=== PATIENT | male | born 1960 | race Caucasian/White ===

== ENCOUNTER 2022-04-07 22:22 | Inpatient (IN) | payer BC ==
[~2022-04-07] VITALS: Ht 167.6 cm; Wt 105.7 kg
[2022-04-07 22:33] VITALS: BP_SYST 122
[2022-04-07] MEDS ORDERED: ONDANSETRON 4 MG ODT TAB PO ONE (22:45)
[2022-04-07 23:05] LABS: BASOPHILS # (AUTO) 0.1 K/uL (0.0-0.2); BASOPHILS % (AUTO) 0.6 % (0.0-2.0); EOSINOPHILS # (AUTO) 0.1 K/uL (0.0-0.4); EOSINOPHILS % (AUTO) 0.8 % (0.0-4.0); HEMATOCRIT 42.9 % (36-54); HEMOGLOBIN 15.2 g/dL (14.0-18.0); LYMPHOCYTES # (AUTO) 1.5 K/uL (1.0-5.5); LYMPHOCYTES % (AUTO) 17.5 % (20.5-51.5); MEAN CORPUSCULAR HEMOGLOBIN 32 pg (27-31); MEAN CORPUSCULAR HGB CONC 35 % (32-36); MEAN CORPUSCULAR VOLUME 91 fL (79.0-98.0); MONOCYTES # (AUTO) 0.8 K/uL (0.0-1.0); MONOCYTES % (AUTO) 9.4 % (1.7-9.3); NEUTROPHILS # (AUTO) 6.2 K/uL (1.8-7.7); NEUTROPHILS % (AUTO) 71.7 % (40.0-70.0); PLATELET COUNT (AUTO) 149 K/uL (130-430); RED BLOOD CELL COUNT(AUTO) 4.72 MIL/uL (4.2-6.2); RED CELL DISTRIBUTION WIDTH 12.7 % (9.0-15.0); WHITE BLOOD COUNT (AUTO) 8.6 K/uL (4.8-10.8)
[2022-04-07 23:27] LABS: ANION GAP 10 (5-15); CALCIUM 9.6 mg/dL (8.4-11.0); CHLORIDE 104 mmol/L (98-107); CREATININE 1.36 mg/dL (0.55-1.30); GLUCOSE 132 mg/dL (70-99); POTASSIUM 3.9 mmol/L (3.5-5.1); UREA NITROGEN, BLOOD 13 mg/dL (8-21)
[2022-04-07 23:29] LABS: GFR AFRICAN AMERICAN 69 mL/min (>90)
[2022-04-07 23:35] LABS: ALANINE AMINOTRANSFERASE 152 U/L (12-78); ALBUMIN 3.6 g/dL (3.4-4.8); ASPARTATE AMINOTRANSFERASE 93 U/L (10-37); LIPASE 113 U/L (73-393); TOTAL BILIRUBIN 0.8 mg/dL (0.0-1.0)
[2022-04-08 00:31] LABS: BILIRUBIN,URINE NEGATIVE (NEGATIVE); BLOOD, URINE NEGATIVE (NEGATIVE); CLARITY/URINE CLEAR (CLEAR); COLOR,URINE YELLOW (YELLOW); GLUCOSE,URINE NEGATIVE (NEGATIVE); KETONES,URINE NEGATIVE (NEGATIVE); LEUKOCYTE ESTERASE ,URINE NEGATIVE (NEGATIVE); NITRITE, URINE NEGATIVE (NEGATIVE); PROTEIN URINE NEGATIVE (NEGATIVE)
[2022-04-08] MEDS ORDERED: ONDANSETRON HCL 4 MG/2 ML VIAL IVP ONE (01:30)
[2022-04-08] MEDS ORDERED: NS 500 ML IV ONE (01:30)
[2022-04-08] MEDS ORDERED: HYDROmorphone 1 MG/ML INJ. CARTRIDGE IVP ONE (01:30)
[2022-04-08] MEDS ORDERED: PIPERACILLIN/TAZO 3.375 GM in NS 50 ML IV ONE (02:00)
[2022-04-08] MEDS ORDERED: HYDROmorphone 1 MG/ML INJ. CARTRIDGE IVP PRN (02:00)
[2022-04-08] MEDS ORDERED: ONDANSETRON HCL 4 MG/2 ML VIAL IVP PRN ×2 (02:00→07:45)
[2022-04-08] MEDS ORDERED: PIPERACILLIN/TAZOBACTAM 3.375 GM/VIAL (ZOSYN) IV ONE (02:20)
[2022-04-08] MEDS ORDERED: SLOW-MAG64 M1 (02:39)
[2022-04-08] MEDS ORDERED: POTA99TA24 (02:39)
[2022-04-08] MEDS ORDERED: FURO-149 PO (02:39)
[2022-04-08] MEDS ORDERED: LACT1CAP69 PO (02:39)
[2022-04-08] MEDS ORDERED: ZINC220T3 PO (02:39)
[2022-04-08] MEDS ORDERED: ASCO500C18 PO (02:39)
[2022-04-08] MEDS ORDERED: LIP20 PO (02:39)
[2022-04-08] MEDS ORDERED: OMEG1CAP48 PO (02:39)
[2022-04-08] MEDS ORDERED: MELA10TA2 PO (02:39)
[2022-04-08] MEDS ORDERED: CETI10CA (02:39)
[2022-04-08] MEDS ORDERED: COLC0.6T67 PO (02:39)
[2022-04-08] MEDS ORDERED: [UNRECOGNIZED DRUG - CODE] PO (02:39)
[2022-04-08] MEDS ORDERED: FENO43CA PO (02:39)
[2022-04-08] MEDS ORDERED: POTA2TAB18 PO (02:39)
[2022-04-08] MEDS ORDERED: CRAN250C PO (02:39)
[2022-04-08] MEDS ORDERED: SPIR50TA PO (02:39)
[2022-04-08] MEDS ORDERED: OMEP10CA2 PO (02:39)
[2022-04-08] MEDS ORDERED: IBUP-1507 PO (02:39)
[2022-04-08] MEDS ORDERED: QUER500C PO (02:39)
[2022-04-08] MEDS ORDERED: TRAZ150T77 PO (02:39)
[2022-04-08] MEDS ORDERED: TUMERIC (02:39)
[2022-04-08] MEDS ORDERED: FLUT16SP24 NS (02:39)
[2022-04-08] MEDS ORDERED: EPIN0.3P3 (02:39)
[2022-04-08 04:07] VITALS: BP_SYST 110
[2022-04-08 06:05] VITALS: BP_SYST 148
[2022-04-08] MEDS ORDERED: LORazepam 2 MG/ML VIAL IVP PRN (07:45)
[2022-04-08] MEDS ORDERED: MUPIROCIN 2% TOPICAL OINTMENT 22 GM NS PRN (07:45)
[2022-04-08] MEDS ORDERED: MORPHINE 2 MG/ML INJ. SYRINGE IVP PRN (07:45)
[2022-04-08] MEDS ORDERED: DOCUSATE SODIUM 100 MG CAPSULE PO PRN (07:45)
[2022-04-08] MEDS ORDERED: ACETAMINOPHEN 325 MG TABLET PO PRN ×2 (07:45→08:15)
[2022-04-08] MEDS ORDERED: POTASSIUM CHLORIDE 20 MEQ TAB.PRT.SR PO PRN (07:45)
[2022-04-08] MEDS ORDERED: NALOXONE HCL 0.4 MG/ML AMP (NARCAN) IVP PRN ×2 (07:45)
[2022-04-08] MEDS ORDERED: MAGNESIUM SULFATE 50 ML IV PRN (07:45)
[2022-04-08 08:00] VITALS: BP_SYST 128
[2022-04-08] MEDS ORDERED: PANTOPRAZOLE SODIUM 40 MG/VIAL (PROTONIX) IVP SCH (09:00)
[2022-04-08] MEDS: PANTOPRAZOLE SODIUM 40 MG/VIAL (PROTONIX) IVP SCH ×2 (09:45→20:49)
[2022-04-08] MEDS: MORPHINE 2 MG/ML INJ. SYRINGE IVP PRN ×2 (10:01→21:08)
[2022-04-08] MEDS ORDERED: CARVEDILOL 25 MG TABLET (COREG) PO ONE (10:30)
[2022-04-08] MEDS: ATORVASTATIN 20 MG TABLET PO SCH (18:31)
[2022-04-08 20:27] VITALS: BP_SYST 147
[2022-04-08] MEDS: CARVEDILOL 25 MG TABLET (COREG) PO SCH (20:54)
[2022-04-08] MEDS: traZODone HCL 50 MG TABLET (DESYREL) PO SCH (21:08)
[2022-04-09] VITALS (7 sets, daily range): BP systolic 100–147
[2022-04-09 08:11] LABS: BASOPHILS % (AUTO) 0.4 % (0.0-2.0); EOSINOPHILS # (AUTO) 0.1 K/uL (0.0-0.4); EOSINOPHILS % (AUTO) 1.2 % (0.0-4.0); HEMATOCRIT 42.4 % (36-54); HEMOGLOBIN 14.8 g/dL (14.0-18.0); LYMPHOCYTES # (AUTO) 2.2 K/uL (1.0-5.5); LYMPHOCYTES % (AUTO) 28.9 % (20.5-51.5); MEAN CORPUSCULAR HEMOGLOBIN 32 pg (27-31); MEAN CORPUSCULAR HGB CONC 35 % (32-36); MEAN CORPUSCULAR VOLUME 92 fL (79.0-98.0); MONOCYTES # (AUTO) 0.7 K/uL (0.0-1.0); MONOCYTES % (AUTO) 9.7 % (1.7-9.3); NEUTROPHILS # (AUTO) 4.6 K/uL (1.8-7.7); NEUTROPHILS % (AUTO) 59.8 % (40.0-70.0); PLATELET COUNT (AUTO) 151 K/uL (130-430); RED BLOOD CELL COUNT(AUTO) 4.63 MIL/uL (4.2-6.2); RED CELL DISTRIBUTION WIDTH 12.5 % (9.0-15.0); WHITE BLOOD COUNT (AUTO) 7.7 K/uL (4.8-10.8)
[2022-04-09 08:24] LABS: CALCIUM 8.7 mg/dL (8.4-11.0); CREATININE 1.26 mg/dL (0.55-1.30)
[2022-04-09] MEDS: PANTOPRAZOLE SODIUM 40 MG/VIAL (PROTONIX) IVP SCH ×2 (10:17→21:19)
[2022-04-09] MEDS: CARVEDILOL 25 MG TABLET (COREG) PO SCH ×2 (10:18→21:20)
[2022-04-09] MEDS: LOSARTAN POTASSIUM 25 MG TABLET PO SCH (10:18)
[2022-04-09] MEDS ORDERED: SUCRALFATE 1 GM TABLET PO ONE (14:15)
[2022-04-09] MEDS ORDERED: NACL 0.9% 1,000 ML IV SCH (16:15)
[2022-04-09] MEDS: ATORVASTATIN 20 MG TABLET PO SCH (17:06)
[2022-04-09] MEDS: SUCRALFATE 1 GM TABLET PO SCH ×2 (17:06→21:19)
[2022-04-09] MEDS: traZODone HCL 50 MG TABLET (DESYREL) PO SCH (21:20)
[2022-04-09] MEDS: MORPHINE 2 MG/ML INJ. SYRINGE IVP PRN (21:22)
[2022-04-10] VITALS: BP_SYST 135
[2022-04-10 07:26] LABS: ALBUMIN 3.3 g/dL (3.4-4.8); BILIRUBIN,DIRECT 0.2 mg/dL (0.0-0.3); CALCIUM 8.7 mg/dL (8.4-11.0); CREATININE 1.14 mg/dL (0.55-1.30); POTASSIUM 3.9 mmol/L (3.5-5.1); TOTAL BILIRUBIN 0.5 mg/dL (0.0-1.0)
[2022-04-10] MEDS: SUCRALFATE 1 GM TABLET PO SCH ×2 (07:39→11:30)
[2022-04-10 09:19] LABS: BASOPHILS % (AUTO) 0.5 % (0.0-2.0); EOSINOPHILS # (AUTO) 0.1 K/uL (0.0-0.4); EOSINOPHILS % (AUTO) 1.2 % (0.0-4.0); HEMATOCRIT 40.2 % (36-54); HEMOGLOBIN 14.1 g/dL (14.0-18.0); LYMPHOCYTES # (AUTO) 2.7 K/uL (1.0-5.5); MEAN CORPUSCULAR HEMOGLOBIN 32 pg (27-31); MEAN CORPUSCULAR HGB CONC 35 % (32-36); MEAN CORPUSCULAR VOLUME 91 fL (79.0-98.0); MONOCYTES # (AUTO) 0.6 K/uL (0.0-1.0); MONOCYTES % (AUTO) 8.1 % (1.7-9.3); NEUTROPHILS # (AUTO) 3.7 K/uL (1.8-7.7); NEUTROPHILS % (AUTO) 52.2 % (40.0-70.0); PLATELET COUNT (AUTO) 160 K/uL (130-430); RED BLOOD CELL COUNT(AUTO) 4.43 MIL/uL (4.2-6.2); RED CELL DISTRIBUTION WIDTH 12.7 % (9.0-15.0); WHITE BLOOD COUNT (AUTO) 7.1 K/uL (4.8-10.8)
[2022-04-10] MEDS: PANTOPRAZOLE SODIUM 40 MG/VIAL (PROTONIX) IVP SCH (09:37)
[2022-04-10] MEDS: CARVEDILOL 25 MG TABLET (COREG) PO SCH (09:38)
[2022-04-10] MEDS: LOSARTAN POTASSIUM 25 MG TABLET PO SCH (09:38)
[2022-04-10 10:06] LABS: HEPATITIS A AB, IgM Negative (Negative); HEPATITIS B CORE AB, IgM Negative (Negative); HEPATITIS B SURFACE AG Negative (Negative)
[2022-04-10] MEDS ORDERED: PRO40 PO (10:28)
[2022-04-10 11:45] VITALS: BP_SYST 107
[2022-04-10 13:16] VITALS: BP_SYST 128
[2022-04-11] MEDS ORDERED: FUROSEMIDE 40 MG TABLET PO SCH (09:00)
[2022-04-11] MEDS ORDERED: SPIRONOLACTONE 50 MG TABLET (ALDACTONE) PO SCH (09:00)
== END 2022-04-10 13:47 | disposition home or self-care (01) | DRG 391 ==
LOC: SED 22:22 → SMU 04-08 01:53
PROVIDERS: ADMIT Family Medicine; ATTEND Family Medicine
PROC: 5A09357 Assistance with Respiratory Ventilation, Less than 24 Consecutive Hours, Continuous Positive Airway Pressure (ICD-10-PCS; principal; 2022-04-08)
PROC: 5A09357 Assistance with Respiratory Ventilation, Less than 24 Consecutive Hours, Continuous Positive Airway Pressure (ICD-10-PCS; 2022-04-10)
DX: K29.70 Gastritis, unspecified, without bleeding (principal); N17.0 Acute kidney failure with tubular necrosis; I42.0 Dilated cardiomyopathy; Z20.822 Contact with and (suspected) exposure to COVID-19; R74.01 Elevation of levels of liver transaminase levels; T39.395A Adverse effect of other nonsteroidal anti-inflammatory drugs [NSAID], initial encounter; Y92.89 Other specified places as the place of occurrence of the external cause; Z91.018 Allergy to other foods; Z91.09 Other allergy status, other than to drugs and biological substances; Z87.11 Personal history of peptic ulcer disease
CPT/HCPCS: 36415; 76376; 76705; 80048; 80053; 80074; 80076; 81003; 83605; 83690; 83735; 83880; 84484; 85025; 87040; 93005; 94660; 94760; 96365; 96375; 99285; C9113; J1170; J2270; J2405; J2543; J7030; Q0162